=== PATIENT | female | born 1985 | race Caucasian/White ===

== ENCOUNTER 2020-10-31 12:52 | Inpatient (IN) ==
[~2020-10-31 12:52] MED LIST: SODIUM CHLORIDE 0.9% 1000ML 1,000 ML IV SCH
[2020-10-31] MEDS ORDERED: fentaNYL citrate 100 MCG/2 ML VIAL IV STA (14:35)
[2020-10-31] MEDS ORDERED: AMPICILLIN/SULBACTAM SOD 3,000 MG in 0.9 % SODIUM CHLORIDE 100 ML IV STA (14:38)
[2020-10-31 15:04] LABS: Basophils # (auto) 0.01 K/uL (0-0.2); Basophils % (auto) 0.1 %; Eosinophils # (auto) 0.08 K/uL (0-0.5); Eosinophils % (auto) 0.6 %; Hematocrit (blood only) 37.7 % (37-47); Hemoglobin 12.6 g/dL (12.0-16.0); Immature Granulocytes # (auto) 0.03 K/uL (0.00-0.02); Immature Granulocytes % (auto) 0.2 %; Lymphocytes # (auto) 1.42 K/uL (1.2-3.4); Lymphocytes % (auto) 11.5 %; Mean Corpuscular Hgb Conc 33.4 g/dL (32-36); Mean Corpuscular Volume 80.9 fL (80-100); Mean Platelet Volume 8.5 fL (7.4-10.4); Monocytes # (auto) 0.59 K/uL (0.11-0.59); Monocytes % (auto) 4.8 %; Neutrophils # (auto) 10.19 K/uL (1.4-6.5); Neutrophils % (auto) 82.8 %; Platelet Count 465 K/uL (130-400); RDW Coefficient of Variation 16.7 % (11.5-14.5); RDW Standard Deviation 48.4 fL (36.4-46.3); Red Blood Count 4.66 M/uL (4.2-5.4); White Blood Count 12.32 K/uL (4.8-10.8)
--- NOTE | 2020-10-31 15:06 | Emergency Department Note ---
History of Present Illness General Chief complaint: Pelvic Pain Stated complaint: SEVERE PELVIC PAIN, HX SMA Time Seen by Provider: 10/31/20 13:44 Source: patient Mode of arrival: ambulatory Limitations: no limitations History of Present Illness Provider Complaint: + other (Left labial swelling) Onset (ago): 2 week(s) Tetanus up to date: yes Location: + genitals Severity: severe Maximum Pain Intensity: 10 Current Pain Intensity: 10 Quality: + aching and + sharp Pain Consistency: + constant Relieved By: + rest Exacerbated By: + palpation and + movement Context: + none Associated symptoms: + denies other symptoms Treatments prior to arrival: + none HPI narrative: This 35-year-old female patient with significant past medical history of ulcerative colitis, short bowel syndrome, uterine ablation, 4 C- sections, sarcoidosis of the lung, hypertension, presents to the emergency department today for evaluation of stabbing pain in her left labia. The patient states the week before Elvi, she developed some stabbing pain in her left groin radiating into the thigh. She noticed some swelling in her left labia 2 days after the onset of the pain. She has been having some difficulty ambulating due to the pain. She was seen at that time by INFORMATICS COORDINATOR and diagnosed with a probable yeast infection, started on medication. She states she was then referred to [facility] emergency department for a possible hernia. They sent her home and advised her to follow-up with GI, which she did and states they felt with her chronic GI problems, but did not deal with the "vaginal pain". The patient states she has been taking Tylenol and Percocet left over from a previous abdominal surgery without relief of her symptoms. Her last dose of Percocet was approximately 7 hours ago. Patient states over the past 3 days, t he swelling and pain has been progressively worsening. She has not contacted her structures engineer with the worsening symptoms, but decided to come to this emergency department instead. Patient denies any abnormal vaginal bleeding or discharge. She denies any discharge from the indurated area. No open wounds or trauma to the area. Past Med/Surg History Medical History Essential (primary) hypertension Sarcoidosis Short bowel syndrome Ulcerative colitis Surgical History (Updated 10/31/20 @ 16:03 by Eddie Rae MD) H/O tubal ligation History of section X4 History of partial colectomy Social History Smoking Status: Never smoker Hx Alcohol Use: No Hx Substance Use: No Feels Safe at Home: Yes Review of Systems A total of 10 systems reviewed and were otherwise negative Physical Exam Vital Signs: Vital Signs - 24 hr 10/31/20 12:55 10/31/20 14:47 10/31/20 16:10 Temperature 36.6 C Temperature Source Oral Pulse Rate 62 Pulse Rate [Apical ] 93 H 114 H Pulse Rhythm [Apic al] Regular Pulse Strength [Ap ical] Normal Respiratory Rate 16 13 18 Respiratory Effort / Characteristics Non-Labored Sponta neous Respiratory Depth Normal Respiratory Patter n Regular Blood Pressure 126/87 Blood Pressure [Ri ght Arm] 121/91 116/88 Blood Pressure Leslie n 100 Blood Pressure Leslie n [Right Arm] 101 97 Blood Pressure Pos ition [Right Arm] Lying Pulse Oximetry 96 99 100 Oxygen Delivery Me thod Room Air Room Air Room Air Sepsis Recent Feve r Within 48 Hours No Sepsis New/Unexpla ined Change in Men bishop Status N/A Sepsis Action Take n by Nursing No Action Required Physical Exam: VITAL SIGNS - Vital signs and nursing notes were reviewed. GENERAL - 35-year-old Female appearing her stated age who is in no acute distress. Communicates well with provider and answers questions appropriately. HEAD - NC/AT. EYES - Sclera anicteric. Palpebral conjunctiva pink and moist with no injection. NECK - Neck with FROM. Supple. No lymphadenopathy noted. No nuchal rigidity. LUNGS - Chest wall symmetric without accessory muscle use, intercostals retractions, or central cyanosis. Normal vesicular breath sounds CTA B/L. No wheezes, rales, or rhonchi appreciated. CARDIAC - RRR with S1/S2. No murmur, rubs, or gallops appreciated. ABDOMEN - Abdominal contour without pulsations or visible masses. BS normoactive all four quadrants. No tenderness to palpation appreciated. No palpable masses, hepatosplenomegaly, or ascites noted. EPIC TRAINER - Speculum examination deferred, as complaint regarding external genitalia. EXTERNAL GENITALIA: - MONS - Werner Stage V. No lesions or growths noted. No palpable inguinal lymph nodes. - VULVA - skin color consistent with surrounding structures. Left labial edema and erythema extending from the Bartholin's gland. Otherwise, no signs of irritation, edema, lesions, growths, or discharge. No vulvar or clitoral adhesions. Significant tenderness to palpation of the left side. - PERINEUM - No growths or lesions. Skin intact without breakdown or scars. - BARTHOLIN'S GLANDS/SKENE'S GLANDS - left-sided enlargement without discharge noted of the Bartholin's gland. Significant tenderness with palpation in the area of the bartholin's gland. - URETHRA - No erythema, edema, discharge, or blood noted. - VAGINA - [place] and moist without lesions, vesicles, discharge, or growths noted. PSYCH - A&Ox3 and cooperates fully with examiner. Pt is very pleasant and interacts well with examiner. Course Course The patient was seen and evaluated as above. Patient is extremely hesitant for bedside I&D. I discussed the case with Dr. Torres. He was agreeable with medicating with fentanyl and Versed, but did not recommend conscious sedation for this procedure. I did consult with Dr. Padgett, INFORMATICS COORDINATOR on-call. She did agree to see and evaluate the patient. She requested a dose of antibiotics, pain medication, and a CBC. An order was placed for continuous cardiac monitoring. The monitor shows a normal sinus rhythm at a rate of 93 bpm. IV access obtained, labs drawn. Patient medicated with IV fentanyl and Unasyn. Patient was seen by Dr. Tillman. Please see her dictation regarding consultation. She will be taking the patient to the OR. Patient medicated with IV Zofran. Labs reviewed by myself. Please see INFORMATICS COORDINATOR dictation regarding ongoing management care of this patient. Administered Medications Fluconazole (Diflucan) 200 mg in 100 mls @ 100 mls/hr IV ONE ONE; Protocol Stop: 10/31/20 16:59 Last Admin: 10/31/20 16:12 Dose: 100 mls/hr Documented by: [id number] Discontinued Medications Fentanyl Citrate (Fentanyl Citrate 100 Mcg/2 Ml Vial) 100 mcg IV NOW STA Stop: 10/31/20 14:36 Last Admin: 10/31/20 15:02 Dose: 100 mcg Documented by: [id number] Ampicillin Sodium/Sulbactam Sodium 3,000 mg/ Sodium Chloride 108 mls @ 200 mls/hr IV NOW STA; Protocol Stop: 10/31/20 15:10 Last Infusion: 10/31/20 15:51 Dose: 0 mls/hr Documented by: [id number] Admin: 10/31/20 15:18 Dose: 200 mls/hr Documented by: [id number] Ondansetron HCl (Ondansetron Inj 2 Mg/Ml 2 Ml Vial) 4 mg IV NOW STA Stop: 10/31/20 15:15 Last Admin: 10/31/20 15:16 Dose: 4 mg Documented by: [id number] Medical Decision Making Differential Diagnosis + abscess of skin or subcutaneous tissue, + cellulitis, + eczema, + necrotizing fasciitis, + foreign body, + dermatitis and + drug eruption In addition to the above, Bartholin's abscess, labial abscess, STI, among others were considered. Home Medications Current Medication List: was personally reviewed by me Laboratory Data Attestation: I reviewed the patient's lab results. Mild leukocytosis of 12,000. No anemia. Platelet count elevated at 465,000. Result diagrams: 10/31/20 14:54 Lab Results 10/31/20 10/31/20 10/31/20 Range/Units 14:54 15:31 15:31 WBC 12.32 H (4.8-10.8) K/uL RBC 4.66 (4.2-5.4) M/uL Hgb 12.6 (12.0-16.0) g/dL Hct 37.7 (37-47) % MCV 80.9 (80-100) fL MCH 27.0 (25-34) pg MCHC 33.4 (32-36) g/dL RDW Std Deviation 48.4 H (36.4-46.3) fL RDW Coeff of Pj 16.7 H (11.5-14.5) % Plt Count 465 H (130-400) K/uL MPV 8.5 (7.4-10.4) fL Immature Gran % (Auto) 0.2 % Neut % (Auto) 82.8 % Lymph % (Auto) 11.5 % [place] % (Auto) 4.8 % Eos % (Auto) 0.6 % Baso % (Auto) 0.1 % Neut # (Auto) 10.19 H (1.4-6.5) K/uL Lymph # (Auto) 1.42 (1.2-3.4) K/uL [place] # (Auto) 0.59 (0.11-0.59) K/uL Eos # (Auto) 0.08 (0-0.5) K/uL Baso # (Auto) 0.01 (0-0.2) K/uL Immature Gran # (Auto) 0.03 H (0.00-0.02) K/uL POC Glucose (70-99) mg/dl COVID-19 Eval [facility] SARS-CoV-2, RNA, NAAT NEGATIVE (NEGATIVE) 10/31/20 Range/Units 15:35 WBC (4.8-10.8) K/uL RBC (4.2-5.4) M/uL Hgb (12.0-16.0) g/dL Hct (37-47) % MCV (80-100) fL MCH (25-34) pg MCHC (32-36) g/dL RDW Std Deviation (36.4-46.3) fL RDW Coeff of Pj (11.5-14.5) % Plt Count (130-400) K/uL MPV (7.4-10.4) fL Immature Gran % (Auto) % Neut % (Auto) % Lymph % (Auto) % [place] % (Auto) % Eos % (Auto) % Baso % (Auto) % Neut # (Auto) (1.4-6.5) K/uL Lymph # (Auto) (1.2-3.4) K/uL [place] # (Auto) (0.11-0.59) K/uL Eos # (Auto) (0-0.5) K/uL Baso # (Auto) (0-0.2) K/uL Immature Gran # (Auto) (0.00-0.02) K/uL POC Glucose 80 (70-99) mg/dl COVID-19 Eval Order SARS-CoV-2, RNA, NAAT (NEGATIVE) Blood Pressure Blood Pressure Findings: Normal blood pressure MDM Narrative This 35-year-old female patient presents to the emergency department today for evaluation of pain in the left labia. The patient was initially suspected of having a Bartholin's abscess, however upon further inspection by INFORMATICS COORDINATOR, noted to have more of a labial abscess. We did discuss the benefits versus risks associated with bedside I&D, but the patient is extremely hesitant and refuses bedside I&D without "being put to sleep". I did consult with INFORMATICS COORDINATOR. The pa david will ultimately be taken to the operating room for incision and drainage of the left labial abscess. Please see INFORMATICS COORDINATOR dictation regarding ongoing management care of this patient. The chart was completed utilizing [employer] Speech voice recognition software. Grammatical errors, random word insertions, pronoun errors, and incomplete sentences are an occasional consequence of this system due to software limitations, ambient noise, and hardware issues. Any formal questions or concerns about the content, text, or information contained within the body of this dictation should be directly addressed to the provider for clarification. Impression & Plan Abscess of left genital labia Discharge Plan Visit Data Chief Complaint: Pelvic Pain Stated Complaint: SEVERE PELVIC PAIN, HX SMA ED Provider: Doug Torres ED Midlevel Provider: Elizabeth Martinez Discharge Problem: Abscess of left genital labia Patient Disposition: Admitted As Inpatient Forms Stand Alone Forms: [facility] Referrals Referrals: Sheri Barrera MD [Primary Care Provider] -
[2020-10-31] MEDS ORDERED: ONDANSETRON INJ 2 MG/ML 2 ML VIAL IV STA (15:14)
[2020-10-31] MEDS ORDERED: ePHEDrine sulfate 50 MG/ML AMP IV PRN (15:23)
[2020-10-31] MEDS ORDERED: ATROPINE SULFATE 0.1 MG/ML 10ML SYR IV PRN (15:23)
[2020-10-31] MEDS ORDERED: fentaNYL citrate 100 MCG/2 ML VIAL IV PRN (15:23)
[2020-10-31] MEDS ORDERED: ONDANSETRON INJ 2 MG/ML 2 ML VIAL IV PRN (15:23)
[2020-10-31] MEDS ORDERED: HYDROmorphone INJ 1 MG/ML SYRINGE IV PRN (15:23)
[2020-10-31] MEDS ORDERED: HYDROmorphone INJ 2 MG/ML SYR/VIAL IV ONE (15:30)
[2020-10-31] MEDS ORDERED: PROPOFOL IV EMULSION 10 MG/ML 20 ML VIAL IV ONE (15:30)
[2020-10-31] MEDS ORDERED: DEXAMETHASONE SOD INJ 4 MG/ML VIAL IV ONE (15:30)
[2020-10-31] MEDS ORDERED: LIDOCAINE HCL 2% 2 ML VIAL/AMP(20MG/ML) INFIL ONE (15:30)
[2020-10-31] MEDS ORDERED: fentaNYL citrate 100 MCG/2 ML VIAL IV ONE (15:30)
[2020-10-31] MEDS ORDERED: ONDANSETRON INJ 2 MG/ML 2 ML VIAL IV ONE (15:30)
[2020-10-31] MEDS ORDERED: MIDAZOLAM HCL 1 MG/ML 2ML VIAL IV ONE (15:30)
--- NOTE | 2020-10-31 15:32 | History & Physical Report ---
Date of Service October 31, 2020 Assessment & Plan (1) Vulvar abscess: 35-year-old -0-0-4 female with history of 4 C-sections and endometrial ablation with tubal ligation 5 years ago. Now with left vulvar/labial abscess and cellulitis together. There is a fluctuant area on the inferior border of the labia which may be incised and drained but patient is unable to tolerate exam neither touch and she strongly desires to go to the OR for further care. She understand the risk of anesthesia, bleeding infection, scarring, injury to surrounding organs. She signed an informed consent. All questions were answered. (2) Vulvar cellulitis: History of Present Illness Chief Complaint: Vulvar pain Primary Care Provider: Sheri Barrera MD Patient is a 35-year-old -0-0-4 female who has been feeling well her pain for the last 3 months. She noted swelling about 2 weeks ago which got worse for the last week and is much more painful. She has seen foot specialist October 22 and prescribed Bactrim for 7 days. She finished it 2 days ago. She also has CT of abdomen which showed vulvar swelling/abscess at [facility]. She describes the pain 10 out of 10, constant and moving makes it worse. It feels warm to touch and sharp pain with touch. She is very nervous about having pelvic exam and drainage in the ER she strongly desires to go to the OR for further care. Upon discussion patient accepted to have an exam here to find out what it has before we make a decision. Her EMPLOYEE DEVELOPMENT SPECIALIST history significant for history of 4 prior C-sections and endometrial ablation after her last baby about 5 years ago. She also had tubal ligation with endometrial ablation. She does not get menstrual periods. She denies pelvic pain, vaginal discharge or STDs. She has not been sexually active for the last 2 years. She denies any history of abnormal Pap smears. She had GC/chlamydia cultures and vaginitis panel at [facility]. All were negative except Yenifer was positive She has a history of Crohn's disease and subtotal colectomy. No history of rectal fistula or ulcers. Patient History Medical History Essential (primary) hypertension Sarcoidosis Short bowel syndrome Ulcerative colitis Surgical History History of section History of partial colectomy Social History Smoking Status: Never smoker Feels Safe at Home: Yes OB History See HPI. Review of Systems All systems reviewed & are unremarkable except as noted in HPI & below Physical Exam Constitutional: WD/WN, vitals as above well developed and + acute distress (She is uncomfortable in bed and crying.) Gastrointestinal (Abdomen): normal bowel sounds, soft, nontender, no hepatosplenomegaly Rectal Exam: normal visual inspection of rectum Genitourinary: + external tenderness, + external swelling and + external erythema (Left labia majora is diffusely swollen from superior edge to perianal skin) Speculum/Bimanual Exam: normal bimanual exam (Patient could not tolerate speculum nor bimanual exam.) Results & Data ([facility]) Vital Signs (Past 12 Hours) Vital Signs Temp Pulse Pulse Resp BP BP Pulse Ox 10/31/20 14:47 93 H 13 121/91 99 10/31/20 12:55 36.6 C 62 16 126/87 96
[2020-10-31] MEDS ORDERED: FLUCONAZOLE 200 MG/100 ML BAG IV ONE (16:00)
[2020-10-31] MEDS ORDERED: VANCOMYCIN CONSULT ACTIVE PRN ×2 (16:12→17:41)
[2020-10-31] MEDS ORDERED: VANCOMYCIN HCL 1,000 MG in SODIUM CHLORIDE 0.9% 500 ML IV ONE (16:45)
[2020-10-31] MEDS ORDERED: MoRPHine SULFATE 4 MG/ML 1 ML CARP\\VIAL IV PRN (17:38)
[2020-10-31] MEDS ORDERED: oxyCODONE/ACETAMINOPHEN 5mg/325mg TAB PO PRN (17:38)
--- NOTE | 2020-10-31 17:47 | Post Operative Brief Note ---
Immediate Post Op Note v1 Date of Surgery October 31, 2020 I identified the patient and participated in the time-out.: Yes Procedure EUA, I&D of vulvar abscess Surgeon Shauna Padgett MD Wall Covering Installer OR Nurse Estimated Blood Loss 10 Findings Consistent with Post-Op Diagnosis Drains Hastings Catheter Anesthesia Type General Complications none Disposition Accompanied Patient To Recovery: Yes Disposition: Recovery Room
--- NOTE | 2020-10-31 19:18 | Anesthesiology Progress Note ---
Date of Service October 31, 2020 Anesthesia Post Procedure Vital Signs Vital Signs: Temp Pulse Pulse Resp BP Pulse Ox 10/31/20 18:00 88 18 131/89 100 10/31/20 17:54 36.7 C 107 H 19 126/88 100 10/31/20 16:39 36.6 C 98 H 18 121/88 97 Transfer of Care Handoff Completed per policy Notes Mental Status: alert / awake / arousable and participated in evaluation Patient Amnestic to Procedure: Yes Nausea / Vomiting: adequately controlled Pain: adequately controlled Airway Patency, RR, SpO2: stable & adequate BP & HR: stable & adequate Hydration State: stable & adequate Anesthetic Complications: no major complications apparent and Pt Satisfied with anesthetic care
[2020-10-31] MEDS: LACTATED RINGER'S 1,000 ML IV SCH (20:05)
[2020-10-31] MEDS: MoRPHine SULFATE 2 MG/ML CARP IV PRN (20:49)
[2020-10-31 20:58] LABS: Creatinine Clr Calc Pharmacy 71.1 ml/min; Est GFR (African American) 98.7; Est GFR (Non-African American) 85.2
[2020-10-31] MEDS: AMPICILLIN/SULBACTAM SOD 3,000 MG in 0.9 % SODIUM CHLORIDE 100 ML IV SCH (21:34)
--- NOTE | 2020-10-31 22:24 | Obstetrical Progress Note ---
Date of Service October 31, 2020 Assessment & Plan Admission and Anticipated Discharge Date Admission Date: October 31, 2020 Subjective Postop check Patient is seen and examined Feels much better, no complaints She is very appreciative Pain is under control with meds No CP/ SOB/ Dizziness/ N&V/ VB/ Leg pain Not OOB yet Tolerating clears Explained about the surgery and findings Vital Signs Temp Pulse Pulse Pulse Resp BP BP 10/31/20 21:30 36.7 C 96 H 16 118/75 10/31/20 20:30 36.6 C 88 18 117/79 10/31/20 20:00 36.6 C 93 H 18 120/81 10/31/20 16:10 114 H 18 116/88 10/31/20 14:47 93 H 13 121/91 10/31/20 12:55 36.6 C 62 16 126/87 Pulse Ox 10/31/20 21:30 97 10/31/20 20:30 97 10/31/20 20:00 95 10/31/20 16:10 100 10/31/20 14:47 99 10/31/20 12:55 96 AP: 35 yo female s/p EUA, I&D of vulvar abscess , pod#0 VSS Afebrile doing well Continue to routine postop care IV AB for 24 hours Encourage PO intake, may ambulate D/C dumont in am Results & Data ([facility]) Vital Signs (Past 12 Hours) Vital Signs Temp Pulse Pulse Pulse Resp BP BP 10/31/20 21:30 36.7 C 96 H 16 118/75 10/31/20 20:30 36.6 C 88 18 117/79 10/31/20 20:00 36.6 C 93 H 18 120/81 10/31/20 16:10 114 H 18 116/88 10/31/20 14:47 93 H 13 121/91 10/31/20 12:55 36.6 C 62 16 126/87 Pulse Ox 10/31/20 21:30 97 10/31/20 20:30 97 10/31/20 20:00 95 10/31/20 16:10 100 10/31/20 14:47 99 10/31/20 12:55 96
--- NOTE | 2020-10-31 23:18 | Operative Report (OR) ---
DATE OF OPERATION: 10/31/2020 PREOPERATIVE DIAGNOSES: The patient is a 35-year-old G4, P4-0-0-4 female with left vulvar/ labial abscess, unable to tolerate pelvic exam and incision and draining in the ER, desires this to be done in the OR under anesthesia. POSTOPERATIVE DIAGNOSES: The patient is a 35-year-old G4, P4-0-0-4 female with left vulvar/ labial abscess, unable to tolerate pelvic exam and incision and draining in the ER, desires this to be done in the OR under anesthesia. PROCEDURE: Examination under anesthesia, incision and drainage of left vulvar/labial abscess and packing with iodoform gauze, and placement of Hastings catheter. SURGEON: Shauna Padgett MD BEATER WORKER HELPER: OR nurse. ESTIMATED BLOOD LOSS: 10 mL. FINDINGS: Exam under anesthesia revealed normal vagina, normal cervix, anteverted, normal size uterus, nonpalpable adnexa. Left vulva and labia were swollen from superior clitoral edge till the perianal skin about 7 x 4 cm and right labia vulva was normal. Perianal skin was normal. The skin and soft tissue were indurated. There was a fluctuating part on the inferior part of this swelling which was at 5 o'clock position. DESCRIPTION OF PROCEDURE: The patient was taken to the operating room where anesthesia was given without difficulty. She was placed in dorsal lithotomy position, prepared and draped in usual sterile fashion. Exam under anesthesia was done with the above findings. The vulva and vagina were prepped with Betadine one more time and this left vulvar/labial abscess was palpated in its entirety. It was extending from superior aspect of the left labia till the posterior fourchette perineal skin. There was induration diffusely and there was a fluctuating point at about 5 o'clock position at the inferior portion of the swelling. This fluctuation point was incised with a 15-blade scalpel, about 0.5 cm. A moderate amount of pus was drained. It was collected for culture. With the tip of hemostat, this cavity was entered. All the pockets were opened and it was massaged and squeezed on its entirety to drain all of the pus. Then the tip of the hemostat was aimed superiorly towards the middle of the swelling, but it was thick and indurated. No more pockets were opened, no more pus was obtained. Then the superior part of the swelling on the labia was also entered with a needle to drain any pus, but unable to retain any pus. It was massaged all the way and squeezed all the way and no more pus was coming. It was hemostatic. This incision site with the small pocket in it was packed with 1/2-inch iodoform gauze and it was cut about 2 inches long The patient tolerated the procedure well. Sponge, lap, instrument count was correct x2. The patient was placed with a Hastings catheter to drain the bladder. She has received IV AB's before surgery. She was taken to recovery room in stable condition. No complications happened and I was present during whole procedure. I attest to the content of the Intraoperative Record and any orders documented therein. Any exceptions are noted below. MTDD
[2020-11-01] MEDS: AMPICILLIN/SULBACTAM SOD 3,000 MG in 0.9 % SODIUM CHLORIDE 100 ML IV SCH ×4 (02:57→21:48)
[2020-11-01] MEDS: oxyCODONE/ACETAMINOPHEN 5mg/325mg TAB PO PRN ×4 (03:54→20:41)
[2020-11-01] MEDS: LACTATED RINGER'S 1,000 ML IV SCH ×2 (03:57→06:06)
[2020-11-01] MEDS: VANCOMYCIN HCL 750 MG in SODIUM CHLORIDE 0.9% 250 ML IV SCH ×2 (03:58→16:19)
[2020-11-01] MEDS ORDERED: VANCOMYCIN HCL 750 MG in SODIUM CHLORIDE 0.9% 500 ML IV SCH (05:00)
[2020-11-01] MEDS ORDERED: IBUPROFEN 600 MG TAB PO PRN (08:07)
[2020-11-01] MEDS ORDERED: ACETAMINOPHEN 325 MG TAB PO PRN (08:09)
[2020-11-01] MEDS ORDERED: Nursing to Pharmacy Communication SCH (08:45)
[2020-11-01] MEDS: ONDANSETRON 4 MG OD TAB PO PRN ×2 (08:50→20:41)
--- NOTE | 2020-11-01 09:09 | Pharmacy Report ---
Pharmacy Abx Dose Progress Nt - Date of Service November 01, 2020 - Pharmacy Dosing Scope The patient is currently receiving the following antimicrobial agents per Pharmacy consult: Vancomycin 750mg IV Q12hrs Also receiving Unasyn 3,000mg IV Q 6hrs - Objective Vital Signs (Past 12hrs): Vital Signs Temp Pulse Resp BP BP Pulse Ox 11/01/20 07:55 36.5 C 82 18 102/67 99 11/01/20 03:05 36.4 C L 69 18 103/67 98 10/31/20 23:30 36.5 C 91 H 16 101/65 97 10/31/20 22:30 36.5 C 90 18 117/80 99 10/31/20 21:30 36.7 C 96 H 16 118/75 97 Lab Results (24hrs): Laboratory Tests (24 Hours) 10/31/20 10/31/20 14:54 14:54 WBC 12.32 H Neut # (Auto) 10.19 H Creatinine 0.89 Est Cr Clr Drug Dosing 71.1 - Risk Factors for Resistance * Antimicrobial use within the last 90 days: Bactrim - Assessment & Plan Assessment 35 year old F receiving VANCOMYCIN + UNASYN for treatment of Vulvar abscess and cellulitis Day # 2 of antimicrobial therapy Plan Vancomycin IV * Patient meets criteria for vancomycin AUC dosing nomogram * Vancomycin 750mg IV Q12hrs * AUC/STALIN is the preferred PK/PD target for vancomycin * Target AUC/STALIN = 400-600 * AUC guided dosing is effective and associated with decreased risk of nephrotoxicity * Will confirm dosing with a trough level tomorrow AM prior to 3rd maintenance dose Unasyn * No dose adjustment needed based on renal function Pharmacy will continue to follow and will adjust dose/frequency as necessary. Thank you.
[2020-11-01 09:20] LABS: Hematocrit (blood only) 32.2 % (37-47); Hemoglobin 10.2 g/dL (12.0-16.0); Immature Granulocytes # (auto) 0.02 K/uL (0.00-0.02); Immature Granulocytes % (auto) 0.2 %; Lymphocytes # (auto) 0.92 K/uL (1.2-3.4); Lymphocytes % (auto) 9.6 %; Mean Corpuscular Hemoglobin 26.1 pg (25-34); Mean Corpuscular Hgb Conc 31.7 g/dL (32-36); Mean Corpuscular Volume 82.4 fL (80-100); Mean Platelet Volume 8.9 fL (7.4-10.4); Monocytes # (auto) 0.24 K/uL (0.11-0.59); Monocytes % (auto) 2.5 %; Neutrophils # (auto) 8.43 K/uL (1.4-6.5); Neutrophils % (auto) 87.7 %; Platelet Count 403 K/uL (130-400); RDW Coefficient of Variation 16.9 % (11.5-14.5); RDW Standard Deviation 49.6 fL (36.4-46.3); Red Blood Count 3.91 M/uL (4.2-5.4); White Blood Count 9.61 K/uL (4.8-10.8)
--- NOTE | 2020-11-01 13:16 | Surgery Progress Note ---
Date of Service November 01, 2020 Assessment & Plan Admission and Anticipated Discharge Date Admission Date: October 31, 2020 Physical Exam Constitutional: WD/WN, vitals as above comfortable Genitourinary: vulvar swelling on left labia noted. no redness or sign of infection. packing removed. Will continue IV antibiotics. Anticipate d ischarge in AM Results & Data ([facility]) Vital Signs (Past 12 Hours) Vital Signs Temp Pulse Resp BP BP Pulse Ox 11/01/20 11:35 36.6 C 87 18 111/72 99 11/01/20 07:55 36.5 C 82 18 102/67 99 11/01/20 03:05 36.4 C L 69 18 103/67 98 Laboratory Results Laboratory Results - last 72 hr 10/31/20 10/31/20 10/31/20 14:54 14:54 15:31 WBC 12.32 H RBC 4.66 Hgb 12.6 Hct 37.7 MCV 80.9 MCH 27.0 MCHC 33.4 RDW Std Deviation 48.4 H RDW Coeff of Pj 16.7 H Plt Count 465 H MPV 8.5 Immature Gran % (Auto) 0.2 Neut % (Auto) 82.8 Lymph % (Auto) 11.5 [place] % (Auto) 4.8 Eos % (Auto) 0.6 Baso % (Auto) 0.1 Neut # (Auto) 10.19 H Lymph # (Auto) 1.42 [place] # (Auto) 0.59 Eos # (Auto) 0.08 Baso # (Auto) 0.01 Immature Gran # (Auto) 0.03 H Creatinine 0.89 Est Cr Clr Drug Dosing 71.1 Est GFR ( Amer) 98.7 Est GFR (Non-Af Amer) 85.2 POC Glucose COVID-19 Eval Order Covid19 IDNow [facility] SARS-CoV-2, RNA, NAAT 10/31/20 10/31/20 11/01/20 15:31 15:35 08:28 WBC 9.61 RBC 3.91 L Hgb 10.2 L Hct 32.2 L MCV 82.4 MCH 26.1 MCHC 31.7 L RDW Std Deviation 49.6 H RDW Coeff of Pj 16.9 H Plt Count 403 H MPV 8.9 Immature Gran % (Auto) 0.2 Neut % (Auto) 87.7 Lymph % (Auto) 9.6 [place] % (Auto) 2.5 Eos % (Auto) 0.0 Baso % (Auto) 0.0 Neut # (Auto) 8.43 H Lymph # (Auto) 0.92 L [place] # (Auto) 0.24 Eos # (Auto) 0.00 Baso # (Auto) 0.00 Immature Gran # (Auto) 0.02 Creatinine Est Cr Clr Drug Dosing Est GFR ( Amer) Est GFR (Non-Af Amer) POC Glucose 80 COVID-19 Eval Order SARS-CoV-2, RNA, NAAT NEGATIVE
[2020-11-01] MEDS: MoRPHine SULFATE 2 MG/ML CARP IV PRN (16:16)
[2020-11-01] MEDS ORDERED: CALCIUM CARBONATE 500 MG CHEWABLE TAB PO PRN (19:41)
[2020-11-02] MEDS: oxyCODONE/ACETAMINOPHEN 5mg/325mg TAB PO PRN (00:40)
[2020-11-02] MEDS: ONDANSETRON 4 MG OD TAB PO PRN (00:40)
[2020-11-02] MEDS: diphenhydrAMINE Capsule 25 MG CAP PO PRN ×2 (02:49→09:14)
[2020-11-02] MEDS: AMPICILLIN/SULBACTAM SOD 3,000 MG in 0.9 % SODIUM CHLORIDE 100 ML IV SCH ×2 (03:04→09:14)
[2020-11-02] MEDS ORDERED: VANCOMYCIN TROUGH ONE (03:30)
[2020-11-02 03:53] LABS: Creatinine Clr Calc Pharmacy 81.1 ml/min; Est GFR (African American) 115.8; Est GFR (Non-African American) 99.9
[2020-11-02] MEDS: VANCOMYCIN HCL 750 MG in SODIUM CHLORIDE 0.9% 250 ML IV SCH (04:36)
--- NOTE | 2020-11-02 07:49 | Surgery Progress Note ---
Date of Service November 02, 2020 Assessment & Plan Admission and Anticipated Discharge Date Admission Date: October 31, 2020 Physical Exam Constitutional: WD/WN, vitals as above comfortable vulvaredema almost completely resolved no redness or induration no drainage will d/c home and f/u next week in office Results & Data [facility]) Vital Signs (Past 12 Hours) Vital Signs Temp Pulse Pulse Resp BP Pulse Ox 11/02/20 07:33 36.7 C 81 16 114/78 97 11/02/20 03:05 36.7 C 85 18 126/84 99 11/02/20 00:40 36.8 C 84 18 121/79 97
--- NOTE | 2020-11-05 02:50 | Discharge Summary (DS) ---
DETAILS OF ADMISSION: The patient is a 35-year-old G4, P4-0-0-4 female with history of 4 C-sections and endometrial ablation with tubal ligation 5 years ago. She presented with left vulvar pain and abscess cellulitis with complaints of pain and swelling for the last 2 weeks. There was a fluctuant area in the inferior border of the abscess, which was tender to touch. The patient was unable to tolerate the exam, neither a local incision and drainage in the ER room. She desired this to be done in the OR under anesthesia. She was taken to the operating room on same day 10/2020. Exam under anesthesia was done with normal findings except the left labial vulva was swollen from superior area, clitoral area till to posterior fourchette anal skin. Fluctuance in the area at the 5 o'clock position was incised with a scalpel and then drained pus. Cultures were obtained. The pockets were opened and it was packed with iodoform. See dictated op note for details. Her surgery was uncomplicated. She received 3 grams of Unasyn and 1500 mg of vancomycin before surgery and then she was brought to the [address] [place] [address] [facility] for IV antibiotics and observation overnight. On postoperative period, the patient was doing well. Her pain was much better. Vital signs stable, afebrile. Urine output was adequate. On postop day #1, the patient was doing well. Vital signs stable, afebrile. Her white count was 12.3 on admission, it came down to 9.6. Packing was removed by Dr. Newton. Vulvar swelling and redness were gone. It improved significantly and IV antibiotics were continued and she was seen on 11/02/2020 in the morning. Vital signs were stable, afebrile. She was doing much better, no pain and edema and swelling was almost gone. No redness or induration, no drainage. She was discharged home with oral antibiotics. She is to be seen in office in a week.
== END 2020-11-02 10:57 | disposition home or self-care (01) | DRG 746 ==
LOC: ED 12:52 → ASU 16:30 → 4N 17:38 → INTOOBSV 17:38